=== PATIENT | male | born 1945 | race Caucasian/White ===

== ENCOUNTER → 2017-01-13 | Day surgery (SDC) | payer MEDICARE, BC ==
[~2017-01-13] VITALS: Ht 182.9 cm; Wt 96.2 kg
[~2017-01-13] MED LIST: ASPIRIN EC81 MG PO; BYSTOLIC5 MG PO; DOCUSATE SODIU250 MG PO; FEOSOL325 MG PO; GLUCOPHAGE1000 MG PO; K-TAB ER20 MEQ PO; LANTUS (IN100 UNIT/M SUB-Q; LEVOTHROID (S150 MCG PO; LIPITOR80 MG PO; MULTIVITAMINS1 EAC1 PO; PERCOCET 5-3251 EACH PO; PLAVIX75 MG PO; PRINIVIL OR ZES10 MG PO; STOOL SOFTENER100 M1 PO
--- NOTE | ~2017-01-13 | OR ---
PATIENT'S NAME: AFSHAN CARMICHAEL [facility] AGE: 71 Y [address] ROOM: [place] [address] LOCATION: [facility] [place] ADMIT DATE: 01/13/2017 OR/Procedure Report DISCHARGE DATE: FAMILY PHYSICIAN: FRITZ BYRD MD ATTENDING PHYSICIAN: Agustin Moss SURGEON: Agustin Moss MD MANAGER LIGHTING: DATE OF PROCEDURE: 01/13/2017 PREOPERATIVE DIAGNOSIS: Phimosis with balanoposthitis. POSTOPERATIVE DIAGNOSIS: Phimosis with balanoposthitis. OPERATIONS: Circumcision. INDICATIONS: After adequate general anesthesia, he was prepped and draped. A dorsal slit was made and the prepuce was retracted over the glans and then a circumcision was done using the parallel lines technique, closed with interrupted 4-0 chromic sutures and Vaseline gauze dressing was applied. He was accompanied to recovery area. AGUSTIN MOSS MD EKL/modl /[id number] d: 01/13/17830 t: 01/14/17 0438, OPERATIVE SUMMARY
--- NOTE | ~2017-01-13 | HP ---
PATIENT'S NAME: AFSHAN CARMICHAEL [facility] AGE: 71 Y [address] 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 Now, he is unable to retract the prepuce. He denies any voiding symptoms. He voids with a good full stream with no dysuria or burning. No other history of urinary tract disease or infections. He in the past has a history of cardiac bypass in 2012, cardiac stent, and has been on Plavix. Presently, he denies any shortness of breath, dyspnea, or other cardiac symptoms. PAST MEDICAL HISTORY: Illnesses: 1. Hypertension. 2. Diabetes mellitus. 3. Arteriosclerotic heart disease. Operations: 1. Cardiac bypass. 2. Cardiac stents. 3. Tonsillectomy. ALLERGIES: NONE KNOWN. PHYSICAL EXAMINATION: GENERAL: Well-developed, well-nourished male. VITAL SIGNS: 140/86, 221 pounds. CHEST: Clear. HEART: Normal sinus rhythm. ABDOMEN: Soft with no palpable masses. : Normal penis except he has scarred and inflamed prepuce with phimosis, unable to retracted over the glans. Testicles are normal. Prostate is slightly enlarged and benign. PATIENT'S NAME: AFSHAN CARMICHAEL [facility] AGE: 71 Y [address] ROOM: [place] [address] [place] [facility] [place]: 01/13/2017 History & Physical DISCHARGE DATE: FAMILY PHYSICIAN: FRITZ BYRD MD ATTENDING PHYSICIAN: Agustin Moss RECTAL: Negative. IMPRESSION: Phimosis with balanoposthitis. PLAN: Circumcision. AGUSTIN MOSS MD EKL/modl /[id number] D: [id number] T: [id number] HISTORY & PHYSICAL
== END | disposition disaster alternative care site (69) ==
LOC: GPOC 01-07 13:00 → GSDC 06:00
PROC: 0VTTXZZ Resection of Prepuce, External Approach (ICD-10-PCS; principal; 2017-01-13)
DX: N47.7 Other inflammatory diseases of prepuce (principal); N47.1 Phimosis; N47.6 Balanoposthitis; I25.10 Atherosclerotic heart disease of native coronary artery without angina pectoris; I10 Essential (primary) hypertension; E11.9 Type 2 diabetes mellitus without complications; Z95.1 Presence of aortocoronary bypass graft; Z98.890 Other specified postprocedural states
CPT/HCPCS: J7030

== ENCOUNTER → 2017-02-10 | Outpatient (CLI) | payer MEDICARE, BC | END | disposition disaster alternative care site (69) | LOC: GRAD 08:39 | DX: I10 Essential (primary) hypertension (principal); E11.21 Type 2 diabetes mellitus with diabetic nephropathy; E03.9 Hypothyroidism, unspecified; E87.5 Hyperkalemia; L98.9 Disorder of the skin and subcutaneous tissue, unspecified ==

== ENCOUNTER → 2017-02-19 | Outpatient (CLI) | payer MEDICARE, BC | END | disposition disaster alternative care site (69) | LOC: GRAD 09:54 | DX: N28.89 Other specified disorders of kidney and ureter (principal); K80.20 Calculus of gallbladder without cholecystitis without obstruction ==